=== PATIENT | female | born 1945 | race African-American/Black ===

== ENCOUNTER 2019-08-28 04:01 | Observation (INO) | payer OTHER ==
--- NOTE | 2019-08-28 04:14 | PDOC ---
History of Present Illness - General Chief Complaint: Chest Pain Stated Complaint: CHEST PAIN Time Seen by Provider: 08/28/19 04:13 - History of Present Illness Initial Comments: 08/28/19 04:13 73 yo F PMH diabetes, HTN, and COPD, p/w R sided chest pain. Patient states that it began around 0300, 03/03. Reports that yesterday she was in court and lost visitation rights with her granddaughter, who she has raised as her own. She is extremely tearful about this and states "I need to see a psychiatrist because I just don't understand". Reports that her chest pain has completely resolved after receiving nitroglycerin and aspirin. Denies SOB, N/V, diaphoresis. Further denies fevers/chills, recent travel, [place]. Past History - Past Medical History Allergies/Adverse Reactions: Allergies Allergy/AdvReac Type Severity Reaction Status Date / Time No Known Allergies Allergy Verified 04/09/13 11:36 Home Medications: Ambulatory Orders Unobtainable Home Med List 0 dose .ROUTE UTDICT 04/09/13 Ibuprofen [Motrin] 800 mg PO TID #20 tablet 02/16/15 Methocarbamol [Robaxin -] 500 mg PO TID #21 tablet 02/16/15 COPD: Yes Diabetes: Yes HTN: Yes - Surgical History Cholecystectomy: Yes - Immunization History Td Vaccination: Yes TDAP Vaccination: No Immunization Up to Date: Yes - Psycho Social/Smoking Cessation Hx Smoking Status: No Smoking History: Never smoked Years of Tobacco Use: 0 Number of Cigarettes Smoked Daily: 0 If you are a former smoker, when did you quit?: 2005 Cigars Per Day: 0 Hx Alcohol Use: No Drug/Substance Use Hx: No Substance Use Type: None Review of Systems - Review of Systems Comments:: 08/28/19 05:05 GENERAL/CONSTITUTIONAL: No fever or chills. No weakness. HEAD, EYES, EARS, NOSE AND THROAT: No change in vision. No ear pain or discharge. No sore throat. CARDIOVASCULAR: R sided chest pain. No shortness of breath. RESPIRATORY: No cough, wheezing, or hemoptysis. GASTROINTESTINAL: No nausea, vomiting, diarrhea or constipation. GENITOURINARY: No dysuria, frequency, or change in urination. MUSCULOSKELETAL: No joint or muscle swelling or pain. No neck or back pain. SKIN: No rash NEUROLOGIC: No headache, vertigo, loss of consciousness, or change in strength/ sensation. ENDOCRINE: No increased thirst. No abnormal weight change. HEMATOLOGIC/LYMPHATIC: No anemia, easy bleeding, or history of blood clots. ALLERGIC/IMMUNOLOGIC: No hives or skin allergy *Physical Exam - Physical Exam 08/28/19 05:06 Gen: well-developed, well-nourished, NAD Neuro: AAOX4, CN II-XII intact, FTN intact, EOMI, PERRLA, 5/5 strength, SILT HEENT: atraumatic, normocephalic, dry mucous membranes Neck: trachea midline, supple CV: regular rate, regular rhythm, no murmurs, rubs, or gallops Pulm: CTA b/l, no wheezing Abd: soft, non-distended, non-tender MSK: full ROM, intact pulses Extr: no edema, no deformities Skin: warm, dry Heart Score/ECG Review - History History: Slightly suspicious - Electrocardiogram EKG: Normal - Age Age: >/= 65 - Risk Factors Risk Factors Heart Score: Yes Hx Hypertension, Yes Hx Diabetes, Yes Hx Obesity Based on the list above the patient has:: >/=3 risk factors or Hx atherosclerotic disease - Troponin Troponin: </= normal limit - Score Heart Score - Total: 4 ED Treatment Course - LABORATORY CBC & Chemistry Diagram: 08/28/19 04:45 08/28/19 04:45 Medical Decision Making - Medical Decision Making 08/28/19 05:02 Patient with chest pain, recent stress in her life. - CBC, CMP - EKG, trop - CXR - ctm EKG normal sinus at 60 bpm. 08/28/19 05:57 Labs unremarkable, first trop negative. Will f/u CXR, get admitted for tele obs. 08/28/19 06:49 CXR without acute pathology. Patient admitted to tele obs. Discharge - Discharge Information Problems reviewed: Yes Clinical Impression/Diagnosis: Chest pain - Follow up/Referral - Patient Discharge Instructions - Post Discharge Activity
[2019-08-28 04:15] VITALS: BMI 25.8
[2019-08-28] MEDS ORDERED: ASPIRIN 81 MG CHEWABLE TABLETS ONE (04:21)
--- NOTE | 2019-08-28 04:24 | PDOC ---
Attending Attestation - Resident Resident Name: Evelyn Schroeder - ED Attending Attestation I have performed the following: I have examined & evaluated the patient, The case was reviewed & discussed with the resident, I agree w/resident's findings & plan - HPI HPI: 08/28/19 06:16 see resident hpi - Physicial Exam PE: 08/28/19 06:16 agree with resident exam - Medical Decision Making 08/28/19 06:16 73-year-old female with chest pain with history of hypertension diabetes and hypercholesterolemia Plan for admission for telemetry opts to medical service
[2019-08-28 05:31] LABS: BASO % 1.1 % (0-2.0); EOS % 2.7 % (0-4.5); HEMATOCRIT 33.1 % (32.4-45.2); LYMPH % 31.5 % (8-40); MCHC 33.3 g/dl (32.0-36.0); MEAN CELL VOLUME 93.3 fl (80-96); MEAN PLT VOLUME 8.1 fl (7.5-11.1); MONO % 7.9 % (3.8-10.2); NEUT % 56.8 % (42.8-82.8); PLATELET COUNT 240 K/MM3 (134-434); RBC 3.55 M/mm3 (3.60-5.2); RDW 14.1 % (11.6-15.6); WHITE BLOOD COUNT 5.4 K/mm3 (4.0-10.0)
[2019-08-28 05:39] LABS: ALBUMIN 2.9 g/dl (3.4-5.0); BILIRUBIN,TOTAL 0.2 mg/dL (0.2-1); BLOOD UREA NITROGEN 18.6 mg/dL (7-18); CALCIUM 8.9 mg/dL (8.5-10.1); CREATININE 0.9 mg/dL (0.55-1.3); POTASSIUM 3.5 mmol/L (3.5-5.1)
--- NOTE | 2019-08-28 07:28 | HP ---
CHIEF COMPLAINT: Chest Pain and SOB PCP: Dr Augusto Anton HISTORY OF PRESENT ILLNESS: Pt is a 73 y/o F with a significant past medical history of NIDDM, HTN, HLD, and COPD who presented to [facility] due to chest pain and shortness of breath. Chest pain and SOB commenced around 3 am this morning and woke her from sleep. Chest pain is described as a constant, "pressure-like" and nonradiating. Pt also endorsing shortness of breath which commenced at the same time of the chest pain. Furthermore, pt states she also developed a 'band-like" headache; pt stressed she never has headaches and this is new for her. Denies loss of consciousness, vomiting, diaphoresis or blurry vision. Of note, pt was in court yesterday and lost custody of her granddaughter and this had made her very upset and under a lot of stress. PMH-as above SocialH- Denies T/A/D FamHx- Father "liver problems". Mother [place] SurgHx- Cholecystectomy NKDA ER course was notable for: (1) 1st Trop Neg (2) EKG nl sinus rhythm, nl intervals (3) HOME MEDICATIONS: Home Medications Medication Instructions Recorded Unobtainable Home Med List 0 dose .ROUTE UTDICT 04/09/13 Ibuprofen [Motrin] 800 mg PO TID #20 tablet 02/16/15 Methocarbamol [Robaxin -] 500 mg PO TID #21 tablet 02/16/15 REVIEW OF SYSTEMS CONSTITUTIONAL: Absent: fever, chills, diaphoresis, generalized weakness, malaise, loss of appetite, weight change HEENT: PRESENT: Headache CARDIOVASCULAR: PRESENT: chest pain RESPIRATORY: Absent: cough, shortness of breath, dyspnea with exertion, orthopnea, wheezing, stridor, hemoptysis GASTROINTESTINAL: Absent: abdominal pain, abdominal distension, nausea, vomiting, diarrhea, constipation, melena, hematochezia GENITOURINARY: Absent: dysuria, frequency, urgency, hesitancy, hematuria, flank pain, genital pain MUSCULOSKELETAL: Absent: myalgia, arthralgia, joint swelling, back pain, neck pain SKIN: Absent: rash, itching, pallor HEMATOLOGIC/IMMUNOLOGIC: Absent: easy bleeding, easy bruising, lymphadenopathy, frequent infections ENDOCRINE: Absent: unexplained weight gain, unexplained weight loss, heat intolerance, cold intolerance NEUROLOGIC: Absent: headache, focal weakness or paresthesias, dizziness, unsteady gait, seizure, mental status changes, bladder or bowel incontinence PSYCHIATRIC: Absent: anxiety, depression, suicidal or homicidal ideation, hallucinations. PHYSICAL EXAMINATION Vital Signs - 24 hr 08/28/19 04:12 Temperature 97.9 F Pulse Rate 71 Respiratory 18 Rate Blood Pressure 163/79 O2 Sat by Pulse 99 Oximetry (%) GENERAL: NAD, AAO3 HEAD: Normal with no signs of trauma. EYES: EOMI Sclera Clear EARS, NOSE, THROAT: MMM NECK: No JVD Supple LUNGS: CTA b/l HEART: RRR S1S2 ABDOMEN: Soft, NDNT LOWER EXTREMITIES: No peripheral edema. NEUROLOGICAL: Cranial nerves II-XII intact. Normal speech. PSYCHIATRIC: Cooperative. Good eye contact. Appropriate mood and affect. SKIN: Warm, dry, normal turgor, no rashes or lesions noted, normal capillary refill. Laboratory Results - last 24 hr 08/28/19 08/28/19 08/28/19 04:45 04:45 04:45 WBC 5.4 RBC 3.55 L Hgb 11.0 Hct 33.1 MCV 93.3 MCH 31.0 MCHC 33.3 RDW 14.1 Plt Count 240 MPV 8.1 Absolute Neuts (auto) 3.1 Neutrophils % 56.8 Lymphocytes % 31.5 Monocytes % 7.9 Eosinophils % 2.7 Basophils % 1.1 Nucleated RBC % 0 Sodium 141 Potassium 3.5 Chloride 105 Carbon Dioxide 29 Anion Gap 7 L BUN 18.6 H Creatinine 0.9 Est GFR (CKD-EPI)AfAm 74.56 Est GFR (CKD-EPI)NonAf 64.33 Random Glucose 185 H Calcium 8.9 Total Bilirubin 0.2 AST 12 L ALT 16 Alkaline Phosphatase 64 Creatine Kinase 88 Troponin I 0.02 Total Protein 6.0 L Albumin 2.9 L ASSESSMENT/PLAN: Pt is a 73 y/o F with a significant past medical history of NIDDM, HTN, HLD, and COPD who presented to [facility] due to chest pain and shortness of breath. #Chest Pain. R/o ACS -Trop Neg. Trend -EKG nl sinus rhythm, nl intervals -Echocardiogram -Tele monitoring -Cardiology Consult -Nuclear Stress test - Restart anti-hypertensive medications as BP highest in long time per patient. CP may be 2/2 uncontrolled TN -Check A1C, lipid panel #NIDDM -ISS. Hold Janumet #HTN Valsartan-HCTZ nonformularly. Will place on Valsartan 160 and HCTZ 25 daily #HLD -Resume Statin #COPD Does not appear to be on any medication. #FEN No standing Fluids Monitor Electrolytes Sodium Controlled/Diabetic Diet #DVT ppx: HEP SQ TID #Dispo -Tele Visit type - Emergency Visit Emergency Visit: Yes ED Registration Date: 08/28/19 Care time: The patient presented to the Emergency Department on the above date and was hospitalized for further evaluation of their emergent condition. - New Patient This patient is new to me today: Yes Date on this admission: 08/28/19 - Critical Care Critical Care patient: No ATTENDING PHYSICIAN STATEMENT I saw and evaluated the patient. I reviewed the resident's note and discussed the case with the resident. I agree with the resident's findings and plan as documented. SUBJECTIVE: OBJECTIVE: ASSESSMENT AND PLAN:
[2019-08-28] MEDS ORDERED: VALSARTAN 160 MG TABLET (UD) PO ONE (08:22)
[2019-08-28] MEDS ORDERED: HYDROCHLOROTHIAZIDE 25 MG TABLET (FP) PO ONE (08:24)
[2019-08-28] MEDS ORDERED: HYDROCHLOROTHIAZIDE 25 MG TABLET (FP) ONE (08:47)
[2019-08-28] MEDS ORDERED: VALSARTAN 80 MG TABLET (UD) ONE (08:48)
--- NOTE | 2019-08-28 10:44 | EKG ---
Test Reason : Blood Pressure : / mmHG Vent. Rate : 060 BPM Atrial Rate : 060 BPM P-R Int : 134 ms QRS Dur : 078 ms QT Int : 442 ms P-R-T Axes : 061 008 044 degrees QTc Int : 442 ms NORMAL SINUS RHYTHM NORMAL ECG WHEN COMPARED WITH ECG OF 30-JUL-2008 01:06, NO SIGNIFICANT CHANGE WAS FOUND Confirmed by HAIM ANDERSON MD ([id number]) on 08/28/2019 10:44:21 AM Referred By: Confirmed By:HAIM ANDERSON MD
--- NOTE | 2019-08-28 11:09 | ECHO ---
Name: SELENE MAHONEY, ARIANE Exam:Adult Echocardiogram Study Date: 08/28/2019 08:09 AM Age: 73 yrs Height: 66 in Weight: 160 lb BSA: 1.8 m2 MMode/2D Measurements & Calculations IVSd: 0.96 cm Ao root diam: 2.2 cm LVIDd: 4.4 cm LA dimension: 4.0 cm LVIDs: 2.8 cm LVPWd: 0.90 cm LVPWs: 1.3 cm EDV(Teich): 86.9 ml ESV(Teich): 29.7 ml LVOT diam: 2.2 cm LAV (MOD-bp): 74.0 ml Doppler Measurements & Calculations MV E max nate: 89.3 cm/sec Ao V2 max: 167.7 cm/sec MV A max nate: 100.7 cm/sec Ao max P.3 mmHg MV E/A: 0.89 MV dec time: 0.25 sec JAIME(V,D): 2.1 cm2 LV V1 max P.7 mmHg PA V2 max: 103.8 cm/sec LV V1 max: 96.7 cm/sec PA max P.3 mmHg Med Peak E' Nate: 4.2 cm/sec Med E/e': 21.4 Lat Peak E' Nate: 5.8 cm/sec Lat E/e': 15.3 Left Ventricle The left ventricular size, thickness and function are normal. The left ventricular ejection fraction is normal. Ejection Fraction = 60-65%. The left ventricular wall motion is normal. Right Ventricle The right ventricle is normal in size and function. Atria Normal left and right atrial size and function. The interatrial septum is intact with no evidence for an atrial septal defect. Mitral Valve There is no mitral regurgitation noted. Tricuspid Valve There is trace tricuspid regurgitation. There was insufficient TR detected to calculate RV systolic p ressure. Aortic Valve There is mild aortic valve thickening. No hemodynamically significant valvular aortic stenosis. No ao rtic regurgitation is present. Pulmonic Valve There is no pulmonic valvular regurgitation. Great Vessels The aortic root is normal size. Pericardium/Pleura There is no pericardial effusion. Interpretation Summary The left ventricular size, thickness and function are normal The right ventricle is normal in size and function. There is trace tricuspid regurgitation. MD Sameer Rojas 08/28/2019 11:09 AM
--- NOTE | 2019-08-28 11:43 | PN ---
Teaching Attending Note Name of Resident: Vazquez Ramesh ATTENDING PHYSICIAN STATEMENT I saw and evaluated the patient. I reviewed the resident's note and discussed the case with the resident. I agree with the resident's findings and plan as documented with exceptions below. SUBJECTIVE: 73 yof with PMhx of HTN, HLD, NIDDM, COPD admitted with sudden onset of chest pain, dyspnea, associated with headache, around 3 AM today, prompting her to come to the ED. reports was at court yesterday, when found out had lost visitation rights to her grandchild, was under a lot of stress. Reports home BP 180s-190s on admission. Reports her prior home BP have been controlled, but not compliant with home Blood glucose measurements. No similar prior history or exertional symptoms. No current symptoms. OBJECTIVE: Vital Signs Period Temp Pulse Resp BP Sys/Carl[place] Pulse Ox Last 24 Hr 97.6 F-97.9 F 56-71 16-18 160-163/77-79 95-99 Intake & Output 08/25/19 08/26/19 08/27/19 08/28/19 23:59 23:59 23:59 23:59 Weight 160 lb GENERAL: Awake, alert, and fully oriented, in no acute distress. HEAD: Normal with no signs of trauma. EYES: Pupils equal, round and reactive to light, extraocular movements intact, sclera anicteric, conjunctiva clear. No lid lag. EARS, NOSE, THROAT: Ears normal, nares patent, oropharynx clear without exudates. Moist mucous membranes. NECK: Normal range of motion, supple, no JVD LUNGS: Breath sounds equal, clear to auscultation bilaterally. No wheezes, and no crackles. No accessory muscle use. HEART: Regular rate and rhythm, normal S1 and S2, no murmurs rubs or gallops appreciated ABDOMEN: Soft, nontender, obese, not distended, normoactive bowel sounds, no guarding, no rebound, no masses. No hepatomegaly or splenomegaly appreciated. MUSCULOSKELETAL: Normal range of motion at all joints. No bony deformities or tenderness. No CVA tenderness. UPPER EXTREMITIES: 2+ pulses, warm, well-perfused. No cyanosis. No clubbing. No peripheral edema. LOWER EXTREMITIES: 2+ pulses, warm, well-perfused. No calf tenderness. No peripheral edema. NEUROLOGICAL: AAOx3, facial symmetry, tongue midline, speech normal, Cranial nerves II-XII intact. Gait not observed PSYCHIATRIC: Cooperative. Good eye contact. Appropriate mood and affect. SKIN: Warm, dry, normal turgor, no rashes or lesions noted, normal capillary refill. Home Medications Medication Instructions Recorded Metoprolol Succinate 50 mg PO DAILY 08/28/19 Pioglitazone HCl 30 mg PO DAILY 08/28/19 Sitagliptin Phos/Metformin HCl 1 tab PO BID 08/28/19 [Janumet 50-1,000 mg Tablet] Valsartan/Hydrochlorothiazide 1 each PO DAILY 08/28/19 [Valsartan-Hctz 160-25 mg Tab] Active Medications Heparin Sodium (Porcine) (Heparin -) 5,000 unit SQ TID [facility] Hydrochlorothiazide (Hctz -) 25 mg PO DAILY [facility] Insulin Aspart (Novolog Vial Sliding Scale -) 1 vial SQ ACHS [facility]; Protocol Metoprolol Succinate (Toprol Xl -) 50 mg PO DAILY [facility] Valsartan (Diovan -) 160 mg PO DAILY [facility] Laboratory Results - last 24 hr 08/28/19 08/28/19 08/28/19 04:45 04:45 04:45 WBC 5.4 RBC 3.55 L Hgb 11.0 Hct 33.1 MCV 93.3 MCH 31.0 MCHC 33.3 RDW 14.1 Plt Count 240 MPV 8.1 Absolute Neuts (auto) 3.1 Neutrophils % 56.8 Lymphocytes % 31.5 Monocytes % 7.9 Eosinophils % 2.7 Basophils % 1.1 Nucleated RBC % 0 Sodium 141 Potassium 3.5 Chloride 105 Carbon Dioxide 29 Anion Gap 7 L BUN 18.6 H Creatinine 0.9 Est GFR (CKD-EPI)AfAm 74.56 Est GFR (CKD-EPI)NonAf 64.33 POC Glucometer Random Glucose 185 H Calcium 8.9 Total Bilirubin 0.2 AST 12 L ALT 16 Alkaline Phosphatase 64 Creatine Kinase 88 Troponin I 0.02 Total Protein 6.0 L Albumin 2.9 L 08/28/19 08/28/19 07:43 10:20 WBC RBC Hgb Hct MCV MCH MCHC RDW Plt Count MPV Absolute Neuts (auto) Neutrophils % Lymphocytes % Monocytes % Eosinophils % Basophils % Nucleated RBC % Sodium Potassium Chloride Carbon Dioxide Anion Gap BUN Creatinine Est GFR (CKD-EPI)AfAm Est GFR (CKD-EPI)NonAf POC Glucometer 142 Random Glucose Calcium Total Bilirubin AST ALT Alkaline Phosphatase Creatine Kinase Troponin I < 0.02 Total Protein Albumin EKG, NSR, no acute ST-T changes noted CXR images and results reviewed, no acute process ASSESSMENT AND PLAN: 73 yof with PMHx of HTN, HLD, NIDDM, COPD admitted with chest pain, headache, elevated BP in the setting of stressful news. -Chest pain, from uncontrolled BP in the setting of recent stress, r/o ACS -NIDDM -HTN -HLD -COPD Plan: Telemetry, r/o ACS. ASA, check lipid panel. 2D echo noted. Cardiology input. BP control, resume home meds and will titrate based on blood pressure readings. Given risk factors, will benefit from stress test, inpatient vs outpatient based on clinical course and BP control. Check A1c, hold oral DM agents for now. ISS DVTPPX lovenox Dispo admit to obs tele. Dc in 24 hours if w/u unrevealing, symptoms resolved and BP improved Discussed with patient and nursing, all questions answered total admit time 55 min.
[2019-08-28] MEDS: INSULIN SLIDING SCALE (NOVOLOG) 1 VIAL SQ SCH ×3 (12:51→22:16)
--- NOTE | 2019-08-28 13:50 | CON.CARD ---
Cardiology Consult (text) - Consultation Consultation Note: cc: cp hpi: 73 f hx htn, dm, copd here with cp. Has been stressed lately. Last night went to bed, felt fine. Awoke 3 am with central chest pressure. Called ems and came and gave asa and nitro and felt better. No sob palps dizzy loc pnd orthopnea, le edema. No further cp. No frequent cp episodes. In er bp was elevated, sbp 190s. pmh: per hpi psh: cholecystectomy social: no tob fam: no premature cad, scd ros: per hpi; all others nl meds: Ambulatory Orders Metoprolol Succinate 50 mg PO DAILY 08/28/19 Pioglitazone HCl 30 mg PO DAILY 08/28/19 Sitagliptin Phos/Metformin HCl [Janumet 50-1,000 mg Tablet] 1 tab PO BID Valsartan/Hydrochlorothiazide [Valsartan-Hctz 160-25 mg Tab] 1 each PO DAILY 02/09 pe: Vital Signs Period Temp Pulse Resp BP Sys/[place] Pulse Ox Last 24 Hr 97.6 F-97.9 F 56-71 16-18 160-163/77-79 95-99 nad no jvd rrr s1s2 no mrg cta bl nl eff aao3 no le e/c/c abd nt nd pos bs no jaundice diaphoresis pos dp pt no carotid bruits Laboratory Last Values WBC 5.4 K/mm3 (4.0-10.0) 08/28/19 04:45 RBC 3.55 M/mm3 (3.60-5.2) L 08/28/19 04:45 Hgb 11.0 GM/dL (10.7-15.3) 08/28/19 04:45 Hct 33.1 % (32.4-45.2) 08/28/19 04:45 MCV 93.3 fl (80-96) 08/28/19 04:45 MCH 31.0 pg (25.7-33.7) 08/28/19 04:45 MCHC 33.3 g/dl (32.0-36.0) 08/28/19 04:45 RDW 14.1 % (11.6-15.6) 08/28/19 04:45 Plt Count 240 K/MM3 (134-434) 08/28/19 04:45 MPV 8.1 fl (7.5-11.1) 08/28/19 04:45 Absolute Neuts (auto) 3.1 K/mm3 (1.5-8.0) 08/28/19 04:45 Neutrophils % 56.8 % (42.8-82.8) 08/28/19 04:45 Lymphocytes % 31.5 % (8-40) 08/28/19 04:45 Monocytes % 7.9 % (3.8-10.2) 08/28/19 04:45 Eosinophils % 2.7 % (0-4.5) 08/28/19 04:45 Basophils % 1.1 % (0-2.0) 08/28/19 04:45 Nucleated RBC % 0 % (0-0) 08/28/19 04:45 Sodium 141 mmol/L (136-145) 08/28/19 04:45 Potassium 3.5 mmol/L (3.5-5.1) 08/28/19 04:45 Chloride 105 mmol/L (98-107) 08/28/19 04:45 Carbon Dioxide 29 mmol/L (21-32) 08/28/19 04:45 Anion Gap 7 MMOL/L (8-16) L 08/28/19 04:45 BUN 18.6 mg/dL (7-18) H 08/28/19 04:45 Creatinine 0.9 mg/dL (0.55-1.3) 08/28/19 04:45 Est GFR (CKD-EPI)AfAm 74.56 08/28/19 04:45 Est GFR (CKD-EPI)NonAf 64.33 08/28/19 04:45 POC Glucometer 205 UNITS (80-120) 08/28/19 12:43 Random Glucose 185 mg/dL (74-106) H 08/28/19 04:45 Calcium 8.9 mg/dL (8.5-10.1) 08/28/19 04:45 Total Bilirubin 0.2 mg/dL (0.2-1) 08/28/19 04:45 AST 12 U/L (15-37) L 08/28/19 04:45 ALT 16 U/L (13-61) 08/28/19 04:45 Alkaline Phosphatase 64 U/L (45-117) 08/28/19 04:45 Creatine Kinase 88 U/L (26-192) 08/28/19 04:45 Troponin I < 0.02 ng/ml (0.00-0.05) 08/28/19 10:20 Total Protein 6.0 g/dl (6.4-8.2) L 08/28/19 04:45 Albumin 2.9 g/dl (3.4-5.0) L 08/28/19 04:45 cxr: clear lungs ecg: sr nl intervals no ischemic changes echo 08/2019: nl lv/rv no sig valve path a/p: 73 f hx htn, dm, copd here with cp. cp: -resolved -trops neg, ecg and echo unremarkable. Does not seem like acs, possibly related to elevated bp. Given her cad risk factors will eval further with nuclear stress test. -continued bp control htn: -cont current meds, if bp remains elevated will need to uptitrate doses dm: -tx plans per primary team
[2019-08-28] MEDS: HEPARIN NA (PORCINE) 5,000 UNITS/ML 1ML VIAL SQ SCH ×2 (15:46→22:16)
[2019-08-28] MEDS ORDERED: LABETALOL HCL 5 MG/1 ML (100MG/20 ML VIAL) IVPUSH ONE (16:44)
[2019-08-28] MEDS ORDERED: LABETALOL HCL 5 MG/1 ML (200MG/40ML VIAL) IVPB ONE (17:21)
[2019-08-28] MEDS ORDERED: HEPARIN NA (PORCINE) 5,000 UNITS/ML 1ML VIAL ONE (22:06)
[2019-08-28 23:45] LABS: CHOLESTEROL 163 mg/dL (50-200); HDL CHOLESTEROL 71 mg/dL (40-60); LDL CHOLESTEROL (ONLY SJRH) 72 mg/dL (5-100); TRIGLYCERIDES 73 mg/dL (0-150)
[2019-08-29 06:29] LABS: BASO % 0.8 % (0-2.0); EOS % 3.2 % (0-4.5); HEMATOCRIT 33.4 % (32.4-45.2); HEMOGLOBIN 11.2 GM/dL (10.7-15.3); LYMPH % 38.4 % (8-40); MCH 31.2 pg (25.7-33.7); MCHC 33.5 g/dl (32.0-36.0); MEAN PLT VOLUME 7.8 fl (7.5-11.1); MONO % 8.6 % (3.8-10.2); PLATELET COUNT 222 K/MM3 (134-434); RDW 13.6 % (11.6-15.6); WHITE BLOOD COUNT 4.3 K/mm3 (4.0-10.0)
[2019-08-29] MEDS: HEPARIN NA (PORCINE) 5,000 UNITS/ML 1ML VIAL SQ SCH ×2 (06:29→14:25)
[2019-08-29 06:51] LABS: INR 1.14 (0.83-1.09); PROTHROMBIN TIME (PATIENT) 13.5 SEC (9.7-13.0)
[2019-08-29 06:54] LABS: ACTIVATED PTT 43.4 SECONDS (25.2-36.5)
[2019-08-29 06:57] LABS: ALBUMIN 2.9 g/dl (3.4-5.0); BILIRUBIN,TOTAL 0.3 mg/dL (0.2-1); BLOOD UREA NITROGEN 11.5 mg/dL (7-18); CALCIUM 8.9 mg/dL (8.5-10.1); CREATININE 0.7 mg/dL (0.55-1.3); PHOSPHOROUS 3.8 mg/dL (2.5-4.9); POTASSIUM 3.3 mmol/L (3.5-5.1)
[2019-08-29] MEDS: INSULIN SLIDING SCALE (NOVOLOG) 1 VIAL SQ SCH ×3 (06:57→16:59)
[2019-08-29] MEDS ORDERED: POTASSIUM CHLORIDE TABS 20 MEQ TABLET.ER (FP) PO ONE ×2 (08:02→11:33)
[2019-08-29] MEDS ORDERED: HYDROCHLOROTHIAZIDE 25 MG TABLET (FP) PO SCH (10:00)
[2019-08-29] MEDS ORDERED: VALSARTAN 160 MG TABLET (UD) PO SCH (10:00)
[2019-08-29] MEDS ORDERED: REGADENOSON 0.4 MG/5 ML PRE-FILLED SYRINGE IVPUSH ONE ×2 (11:15→11:16)
--- NOTE | 2019-08-29 11:16 | PN ---
Progress Note, Physician Chief Complaint: stress test done History of Present Illness: Chest pain/ heaviness at rest, woke her from sleep with SOB + DM, + HTN - Current Medication List Current Medications: Active Medications Heparin Sodium (Porcine) (Heparin -) 5,000 unit SQ TID [facility] Last Admin: 08/29/19 06:29 Dose: 5,000 unit Hydrochlorothiazide (Hctz -) 25 mg PO DAILY [facility] Insulin Aspart (Novolog Vial Sliding Scale -) 1 vial SQ ACHS [facility]; Protocol Last Admin: 08/29/19 06:57 Dose: Not Given Metoprolol Succinate (Toprol Xl -) 50 mg PO DAILY [facility] Regadenoson (Lexiscan) 0.4 mg IVPUSH ONCE ONE Stop: 08/29/19 11:16 Valsartan (Diovan -) 160 mg PO DAILY [facility] - Objective Vital Signs: Vital Signs Temperature 97.7 F 08/29/19 07:20 Pulse Rate 56 L 08/29/19 07:20 Respiratory Rate 20 08/29/19 07:20 Blood Pressure 171/66 H 08/29/19 07:20 O2 Sat by Pulse Oximetry (%) 98 08/29/19 07:20 Constitutional: Yes: No Distress Cardiovascular: Yes: Regular Rate and Rhythm Respiratory: Yes: CTA Bilaterally Gastrointestinal: Yes: Soft Edema: No Neurological: Yes: Alert, Oriented Labs: CBC, BMP 08/29/19 05:30 08/29/19 05:30 INR, PTT INR 1.14 (0.83-1.09) H 08/29/19 05:30 Laboratory Tests 08/28/19 08/28/19 08/29/19 04:45 10:20 05:30 WBC 4.3 Hgb 11.2 Plt Count 222 Sodium Potassium Creatinine Troponin I 0.02 < 0.02 08/29/19 05:30 WBC Hgb Plt Count Sodium 142 Potassium 3.3 L Creatinine 0.7 Troponin I - ....Imaging EKG: Image Reviewed Assessment/Plan cxr: clear lungs ecg: sr nl intervals no ischemic changes echo 08/2019: nl lv/rv no sig valve path a/p: 73 f hx htn, dm, copd here with cp. Stress test shows inferolateral and anterolateral ischemia. Discussed with patient. Options of medical therapy for CAD vs medical therapy + diagnostic LHC to define presence and extent of CAD were offered Risks/benefits/ alternative (outpatient CTA) also reviewed. Patient has decided to have cath, which I agree is the best option and my recommendation given the risk factor profile and chest pain at rest. Plan for tx to [facility] for cath.
[2019-08-29] MEDS ORDERED: ASPIRIN 81 MG CHEWABLE TABLETS PO SCH (13:30)
[2019-08-29 13:53] VITALS: PULSE 58
[2019-08-29] MEDS ORDERED: ASPIRIN 81 MG CHEWABLE TABLETS ONE (14:19)
[2019-08-29 16:31] VITALS: BP 144/74; TEMP 98.4
--- NOTE | 2019-08-29 18:10 | DS ---
Physical Exam: SUBJECTIVE: Patient seen and examined in the morning. No acute events overnight. No complaints of chest pain, shortness of breath, abdominal pain, nausea, vomiting, diarrhea. OBJECTIVE: Vital Signs Period Temp Pulse Resp BP Sys/[place] Pulse Ox Last 24 Hr 97.5 F-98.4 F 56-84 16-20 144-171/54-74 97-100 PHYSICAL EXAM GENERAL: The patient is awake, alert, and fully oriented, in no acute distress. HEAD: Normal with no signs of trauma. EYES: PERRL, extraocular movements intact, sclera anicteric, conjunctiva clear. ENT: Ears normal, nares patent, oropharynx clear without exudates, moist mucous membranes. NECK: Trachea midline, full range of motion, supple. LUNGS: Breath sounds equal, clear to auscultation bilaterally, no wheezes, no crackles, no accessory muscle use. HEART: Regular rate and rhythm, S1, S2 without murmur, rub or gallop. Nontender to palpation. ABDOMEN: Soft, nontender, nondistended, normoactive bowel sounds, no guarding, no rebound, no hepatosplenomegaly, no masses. EXTREMITIES: 2+ pulses, warm, well-perfused, no edema. NEUROLOGICAL: Cranial nerves II through XII grossly intact. Normal speech, gait not observed. PSYCH: Normal mood, normal affect. SKIN: Warm, dry, normal turgor, no rashes or lesions noted. LABS Laboratory Results - last 24 hr 08/28/19 08/28/19 08/28/19 04:45 10:20 22:11 WBC RBC Hgb Hct MCV MCH MCHC RDW Plt Count MPV Absolute Neuts (auto) Neutrophils % Lymphocytes % Monocytes % Eosinophils % Basophils % Nucleated RBC % PT with INR INR PTT (Actin FS) Sodium Potassium Chloride Carbon Dioxide Anion Gap BUN Creatinine Est GFR (CKD-EPI)AfAm Est GFR (CKD-EPI)NonAf POC Glucometer 241 Random Glucose Hemoglobin A1c % 7.5 H Calcium Phosphorus Magnesium Total Bilirubin AST ALT Alkaline Phosphatase Troponin I < 0.02 Total Protein Albumin Triglycerides 73 Cholesterol 163 Total LDL Cholesterol 72 HDL Cholesterol 71 H 08/29/19 08/29/19 08/29/19 05:30 05:30 05:30 WBC 4.3 RBC 3.60 Hgb 11.2 Hct 33.4 MCV 93.0 MCH 31.2 MCHC 33.5 RDW 13.6 Plt Count 222 MPV 7.8 Absolute Neuts (auto) 2.1 Neutrophils % 49.0 Lymphocytes % 38.4 D Monocytes % 8.6 Eosinophils % 3.2 Basophils % 0.8 Nucleated RBC % 0 PT with INR 13.50 H INR 1.14 H PTT (Actin FS) 43.4 H Sodium 142 Potassium 3.3 L Chloride 106 Carbon Dioxide 30 Anion Gap 6 L BUN 11.5 Creatinine 0.7 Est GFR (CKD-EPI)AfAm 101.03 Est GFR (CKD-EPI)NonAf 87.17 POC Glucometer Random Glucose 149 H Hemoglobin A1c % Calcium 8.9 Phosphorus 3.8 Magnesium 2.0 Total Bilirubin 0.3 AST 11 L ALT 16 Alkaline Phosphatase 63 Troponin I Total Protein 6.0 L Albumin 2.9 L Triglycerides Cholesterol Total LDL Cholesterol HDL Cholesterol 08/29/19 08/29/19 08/29/19 06:54 13:21 16:55 WBC RBC Hgb Hct MCV MCH MCHC RDW Plt Count MPV Absolute Neuts (auto) Neutrophils % Lymphocytes % Monocytes % Eosinophils % Basophils % Nucleated RBC % PT with INR INR PTT (Actin FS) Sodium Potassium Chloride Carbon Dioxide Anion Gap BUN Creatinine Est GFR (CKD-EPI)AfAm Est GFR (CKD-EPI)NonAf POC Glucometer 145 144 184 Random Glucose Hemoglobin A1c % Calcium Phosphorus Magnesium Total Bilirubin AST ALT Alkaline Phosphatase Troponin I Total Protein Albumin Triglycerides Cholesterol Total LDL Cholesterol HDL Cholesterol HOSPITAL COURSE: Date of Admission:08/28/19 Date of Discharge: 08/29/19 73F PMH HTN, HLD, NIDDM, COPD admitted for chest pain, headache, elevated BP. Echo showed the left ventricular size, thickness and function are normal. Right ventricle is normal in size and function. There is trace tricuspid regurgitation. Stress test hsows inferolateral and anterolateral ischemia. Patient was offered medical therapy or medical therapy with a diagnostic left heart catherization, and chose to have catherization. Patient was accepted to [place] for catherization under the care of Dr. Lozoya. MEDICATIONS: ASA 81 mg PO Metoprolol 50 mg PO Valsartan 160 mg PO Heparin 5000 unit SQ TID Imaging done this admission: Chest X-ray: Single portable view of the chest reveals clear lungs, normal mediastinum and sharp angles. The bones and soft tissues are intact. An acute process is not seen. If symptoms persist, further imaging may be of help. Echo: The left ventricular size, thickness and function are normal The right ventricle is normal in size and function. There is trace tricuspid regurgitation. Stress Test: EXERCISE RESULTS: No ischemic ST changes and no arrhythmias during Regadenoson infusion. NUCLEAR RESULTS: Mild inferolateral ischemia. Mild to moderate anterolateral ischemia. Breast attenuation artifact. No evidence of transient ischemic dilatation. LVEF : 70% Minutes to complete discharge: 30 Discharge Summary Problems reviewed: Yes Reason For Visit: CHEST PAIN Current Active Problems Chest pain (Acute) Condition: Stable - Instructions Diet, Activity, Other Instructions: 73F PMH HTN, HLD, NIDDM, COPD admitted for chest pain, headache, elevated BP. Echo showed the left ventricular size, thickness and function are normal. Right ventricle is normal in size and function. There is trace tricuspid regurgitation. Stress test hsows inferolateral and anterolateral ischemia. Patient was offered medical therapy or medical therapy with a diagnostic left heart catherization, and chose to have catherization. Patient was accepted to [place] for catherization under the care of Dr. Lozoya. MEDICATIONS: ASA 81 mg PO Metoprolol 50 mg PO Valsartan 160 mg PO Heparin 5000 unit SQ TID Referrals: Garret Lozoya MD [Other] - 08/29/19 Disposition: TRANSFER ACUTE CARE/OTHER HOSP - Home Medications Comprehensive Discharge Medication List: Ambulatory Orders Metoprolol Succinate 50 mg PO DAILY 08/28/19 Pioglitazone HCl 30 mg PO DAILY 08/28/19 Sitagliptin Phos/Metformin HCl [Janumet 50-1,000 mg Tablet] 1 tab PO BID Valsartan/Hydrochlorothiazide [Valsartan-Hctz 160-25 mg Tab] 1 each PO DAILY 02/09 This patient is new to me today: Yes Date on this admission: 08/29/19 Emergency Visit: Yes ED Registration Date: 08/28/19 Care time: The patient presented to the Emergency Department on the above date and was hospitalized for further evaluation of their emergent condition. Critical Care patient: No - Discharge Referral Referred to [facility] No ATTENDING PHYSICIAN STATEMENT I saw and evaluated the patient. I reviewed the resident's note and discussed the case with the resident. I agree with the resident's findings and plan as documented. SUBJECTIVE: OBJECTIVE: ASSESSMENT AND PLAN:
--- NOTE | 2019-08-29 18:19 | PN ---
Teaching Attending Note Name of Resident: Giovani England ATTENDING PHYSICIAN STATEMENT I saw and evaluated the patient. I reviewed the resident's note and discussed the case with the resident. I agree with the resident's findings and plan as documented. SUBJECTIVE: Chest heaviness at rest. No cough/sputum/hemoptysis OBJECTIVE: Afebrile Hemodynamically Stable. Last Vital Signs Temp Pulse Resp BP Pulse Ox 98.4 F 58 L 16 144/74 97 08/29/19 15:50 08/29/19 15:50 08/29/19 15:50 08/29/19 15:50 08/29/19 15:50 HEENT - Atraumatic, Normocephalic. Heart - S1, S2, RRR Lungs - Clear to auscultation Abdomen - Soft, non-tender. Bowel Sounds normal Extremities - no calf tenderness Laboratory Results - last 24 hr 08/28/19 08/28/19 08/28/19 04:45 10:20 22:11 WBC RBC Hgb Hct MCV MCH MCHC RDW Plt Count MPV Absolute Neuts (auto) Neutrophils % Lymphocytes % Monocytes % Eosinophils % Basophils % Nucleated RBC % PT with INR INR PTT (Actin FS) Sodium Potassium Chloride Carbon Dioxide Anion Gap BUN Creatinine Est GFR (CKD-EPI)AfAm Est GFR (CKD-EPI)NonAf POC Glucometer 241 Random Glucose Hemoglobin A1c % 7.5 H Calcium Phosphorus Magnesium Total Bilirubin AST ALT Alkaline Phosphatase Troponin I < 0.02 Total Protein Albumin Triglycerides 73 Cholesterol 163 Total LDL Cholesterol 72 HDL Cholesterol 71 H 08/29/19 08/29/19 08/29/19 05:30 05:30 05:30 WBC 4.3 RBC 3.60 Hgb 11.2 Hct 33.4 MCV 93.0 MCH 31.2 MCHC 33.5 RDW 13.6 Plt Count 222 MPV 7.8 Absolute Neuts (auto) 2.1 Neutrophils % 49.0 Lymphocytes % 38.4 D Monocytes % 8.6 Eosinophils % 3.2 Basophils % 0.8 Nucleated RBC % 0 PT with INR 13.50 H INR 1.14 H PTT (Actin FS) 43.4 H Sodium 142 Potassium 3.3 L Chloride 106 Carbon Dioxide 30 Anion Gap 6 L BUN 11.5 Creatinine 0.7 Est GFR (CKD-EPI)AfAm 101.03 Est GFR (CKD-EPI)NonAf 87.17 POC Glucometer Random Glucose 149 H Hemoglobin A1c % Calcium 8.9 Phosphorus 3.8 Magnesium 2.0 Total Bilirubin 0.3 AST 11 L ALT 16 Alkaline Phosphatase 63 Troponin I Total Protein 6.0 L Albumin 2.9 L Triglycerides Cholesterol Total LDL Cholesterol HDL Cholesterol 08/29/19 08/29/19 08/29/19 06:54 13:21 16:55 WBC RBC Hgb Hct MCV MCH MCHC RDW Plt Count MPV Absolute Neuts (auto) Neutrophils % Lymphocytes % Monocytes % Eosinophils % Basophils % Nucleated RBC % PT with INR INR PTT (Actin FS) Sodium Potassium Chloride Carbon Dioxide Anion Gap BUN Creatinine Est GFR (CKD-EPI)AfAm Est GFR (CKD-EPI)NonAf POC Glucometer 145 144 184 Random Glucose Hemoglobin A1c % Calcium Phosphorus Magnesium Total Bilirubin AST ALT Alkaline Phosphatase Troponin I Total Protein Albumin Triglycerides Cholesterol Total LDL Cholesterol HDL Cholesterol Current Medications Generic Name Dose Route Start Last Admin Trade Name Freq PRN Reason Stop Dose Admin Aspirin 81 mg 08/29/19 13:30 08/29/19 14:25 Asa - PO 81 mg DAILY SHERRI Administration Heparin Sodium (Porcine) 5,000 unit 08/28/19 14:00 08/29/19 14:25 Heparin - SQ 5,000 unit TID SHERRI Administration Hydrochlorothiazide 25 mg 08/29/19 10:00 Hctz - PO DAILY [facility] Insulin Aspart 1 vial 08/28/19 11:00 08/29/19 16:59 Novolog Vial Sliding Scale - SQ Not Given ACHS [facility] Protocol Metoprolol Succinate 50 mg 08/29/19 10:00 08/29/19 13:10 Toprol Xl - PO Not Given DAILY [facility] Valsartan 160 mg 08/29/19 10:00 08/29/19 12:54 Diovan - PO 160 mg DAILY SHERRI Administration Home Medications Medication Instructions Recorded Metoprolol Succinate 50 mg PO DAILY 08/28/19 Pioglitazone HCl 30 mg PO DAILY 08/28/19 Sitagliptin Phos/Metformin HCl 1 tab PO BID 08/28/19 [Janumet 50-1,000 mg Tablet] Valsartan/Hydrochlorothiazide 1 each PO DAILY 08/28/19 [Valsartan-Hctz 160-25 mg Tab] ASSESSMENT AND PLAN: 73 year old female with HTN, DM 2, COPD presents with CP. 1. Acute Cardiac CP/Unstable Angina tropI neg, ECG - no acute changes. CXR - no acute findings. Positive MIBI - Stress test shows inferolateral and anterolateral ischemia. Evaluated by Cardio and recommended for transfer to [facility] for Cardiac Cath - accepting physician Dr. Garret Lozoya Continue ASA, BB, ARB. Consideration of Statin by Cardio. 2. HTN- on HCTZ, Valsartan, Metoprolol 3. DM 2 - Sitagliptin/metformin/Pioglitazone held. Maintain on Novolog sliding scale. 4. Hypokalemia - repleted. DVT Px - Heparin SQ
== END 2019-08-29 18:00 | disposition short-term general hospital (02) ==
LOC: JER 04:01 → JERBED 05:07
PROVIDERS: ADMIT Hospitalist
PROC: 3E023GC Introduction of Other Therapeutic Substance into Muscle, Percutaneous Approach (ICD-10-PCS; principal; 2019-08-28)
PROC: 3E033GC Introduction of Other Therapeutic Substance into Peripheral Vein, Percutaneous Approach (ICD-10-PCS; 2019-08-28)
PROC: 3E033GC Introduction of Other Therapeutic Substance into Peripheral Vein, Percutaneous Approach (ICD-10-PCS; 2019-08-28)
DX: R07.9 Chest pain, unspecified (principal); I20.0 Unstable angina; I10 Essential (primary) hypertension; E11.9 Type 2 diabetes mellitus without complications; Z79.84 Long term (current) use of oral hypoglycemic drugs; E78.00 Pure hypercholesterolemia, unspecified; E87.6 Hypokalemia; Z90.49 Acquired absence of other specified parts of digestive tract
CPT/HCPCS: 36415; 71045-TC-FY; 78452-TC; 80053; 80061; 82550; 82962; 83036; 83721; 83735; 84100; 84484; 85025; 85610; 85730; 93005; 93010; 93017; 93306-TC; 96372; 96374; 96375; 99285-25; A9502; G0378; J1644; J2785

== ENCOUNTER 2022-07-21 11:19 | Inpatient (IN) | payer OTHER ==
[2022-07-21] MEDS ORDERED: amLODIPine BESYLATE 10 MG TABLET (FP) PO ONE ×2 (12:42→15:40)
[2022-07-21] MEDS ORDERED: INSULIN REGULAR HUMAN 100 UNITS/ML *VIAL IVPUSH ONE (12:57)
[2022-07-21 13:05] LABS: EOS % 1.4 % (0-4.5); HEMATOCRIT 35.6 % (32.4-45.2); HEMOGLOBIN 12.2 GM/dL (10.7-15.3); LYMPH % 20.8 % (8-40); MCH 31.8 pg (25.7-33.7); MCHC 34.3 g/dl (32.0-36.0); MEAN CELL VOLUME 92.7 fl (80-96); MEAN PLT VOLUME 8.4 fl (7.5-11.1); NEUT % 69.8 % (42.8-82.8); PLATELET COUNT 225 10^3/uL (134-434); RBC 3.84 M/mm3 (3.60-5.2); RDW 13.3 % (11.6-15.6); WHITE BLOOD COUNT 4.8 K/mm3 (4.0-10.0)
[2022-07-21] MEDS ORDERED: INSULIN REGULAR HUMAN 100 UNITS/ML *VIAL SQ ONE (13:08)
[2022-07-21] MEDS ORDERED: amLODIPine BESYLATE 10 MG TABLET (FP) ONE ×2 (13:09→16:56)
[2022-07-21] MEDS ORDERED: amLODIPine BESYLATE 5 MG TABLET (FP) ONE (13:09)
[2022-07-21] MEDS ORDERED: LOSARTAN POTASSIUM 25 MG TABLET PO ONE (13:27)
[2022-07-21 13:34] LABS: CALCIUM 8.7 mg/dL (8.5-10.1)
[2022-07-21 13:35] LABS: ALBUMIN 3.3 g/dl (3.4-5.0); BLOOD UREA NITROGEN 10.4 mg/dL (7-18); MAGNESIUM 1.7 mg/dL (1.8-2.4)
[2022-07-21 13:38] LABS: CREATININE 0.9 mg/dL (0.55-1.3)
[2022-07-21 13:39] LABS: BILIRUBIN,TOTAL 0.3 mg/dL (0.2-1); TOT PROT 6.5 g/dl (6.4-8.2)
[2022-07-21] MEDS ORDERED: LOSARTAN POTASSIUM 25 MG TABLET ONE (13:47)
[2022-07-21 17:26] LABS: URINE APPEARANCE CLEAR; URINE BILIRUBIN NEGATIVE (NEGATIVE); URINE COLOR YELLOW; URINE GLUCOSE (UA) 3+ (NEGATIVE); URINE KETONE NEGATIVE (NEGATIVE); URINE LEUK ESTERASE NEGATIVE (NEGATIVE); URINE NITRITE NEGATIVE (NEGATIVE); URINE PROTEIN NEGATIVE (NEGATIVE); URINE UROBILINOGEN 0.2 mg/dL (0.2-1.0)
[2022-07-21] MEDS ORDERED: NICARDIPINE 25 MG in DEXTROSE 5%-WATER - 240 ML IVPB SCH (17:45)
[2022-07-21] MEDS ORDERED: MAGNESIUM SULF 50% (8.12 MEQ/2 ML-1 GM VIAL) IVPB ONE (18:22)
[2022-07-21] MEDS ORDERED: MAGNESIUM SULFATE IN WATER 2 GM/50 ML IVPB IVPB ONE (19:52)
[2022-07-22 06:31] LABS: BASO % 0.8 % (0-2.0); EOS % 1.4 % (0-4.5); HEMATOCRIT 34.9 % (32.4-45.2); HEMOGLOBIN 12.2 GM/dL (10.7-15.3); LYMPH % 22.7 % (8-40); MCH 32.2 pg (25.7-33.7); MEAN CELL VOLUME 91.9 fl (80-96); MEAN PLT VOLUME 7.8 fl (7.5-11.1); MONO % 6.4 % (3.8-10.2); NEUT % 68.7 % (42.8-82.8); PLATELET COUNT 215 10^3/uL (134-434); RDW 13.4 % (11.6-15.6); WHITE BLOOD COUNT 5.6 K/mm3 (4.0-10.0)
[2022-07-22 06:46] LABS: BLOOD UREA NITROGEN 8.4 mg/dL (7-18); CALCIUM 8.3 mg/dL (8.5-10.1); MAGNESIUM 1.8 mg/dL (1.8-2.4)
[2022-07-22 06:50] LABS: CREATININE 0.6 mg/dL (0.55-1.3); PHOSPHOROUS 3.4 mg/dL (2.5-4.9)
[2022-07-22 06:51] LABS: BILIRUBIN,TOTAL 0.4 mg/dL (0.2-1); TOT PROT 5.9 g/dl (6.4-8.2)
[2022-07-22] MEDS: INSULIN SLIDING SCALE (NOVOLOG) 1 VIAL SQ SCH ×3 (10:02→16:45)
[2022-07-22] MEDS: ENOXAPARIN NA (PORCINE) 40 MG/0.4 ML DISP.SYRIN SQ SCH (10:03)
[2022-07-22] MEDS ORDERED: LOSARTAN POTASSIUM 25 MG TABLET PO SCH ×2 (10:30→11:21)
[2022-07-22] MEDS ORDERED: metoPROLOL SUCCINATE 25 MG TAB.SR.24H (FP) PO ONE (10:55)
[2022-07-22] MEDS ORDERED: LOSARTAN POTASSIUM 25 MG TABLET ONE ×2 (10:55→11:36)
[2022-07-22] MEDS: metoPROLOL SUCCINATE 25 MG TAB.SR.24H (FP) PO SCH (10:59)
[2022-07-22] MEDS ORDERED: CEFTRIAXONE 1 GM in DEXTROSE 5%-WATER - 50 ML IVPB ONE (11:17)
[2022-07-22] MEDS ORDERED: LOSARTAN POTASSIUM 25 MG TABLET PO ONE (11:20)
[2022-07-22] MEDS: amLODIPine BESYLATE 10 MG TABLET (FP) PO SCH (11:36)
[2022-07-22] MEDS ORDERED: amLODIPine BESYLATE 10 MG TABLET (FP) ONE (11:36)
[2022-07-22] MEDS ORDERED: CEFTRIAXONE 1 GM/50 ML BAG ONE (11:37)
[2022-07-22 16:23] VITALS: BMI 33.9
[2022-07-23] MEDS: INSULIN SLIDING SCALE (NOVOLOG) 1 VIAL SQ SCH ×3 (06:14→16:29)
[2022-07-23 07:51] LABS: BASO % 0.4 % (0-2.0); EOS % 1.4 % (0-4.5); HEMATOCRIT 36.1 % (32.4-45.2); HEMOGLOBIN 12.4 GM/dL (10.7-15.3); LYMPH % 15.6 % (8-40); MCH 31.7 pg (25.7-33.7); MCHC 34.4 g/dl (32.0-36.0); MEAN CELL VOLUME 92.1 fl (80-96); MEAN PLT VOLUME 7.8 fl (7.5-11.1); NEUT % 76.6 % (42.8-82.8); PLATELET COUNT 210 10^3/uL (134-434); RBC 3.92 M/mm3 (3.60-5.2); RDW 13.5 % (11.6-15.6)
[2022-07-23 08:15] LABS: CALCIUM 8.6 mg/dL (8.5-10.1)
[2022-07-23 08:17] LABS: CREATININE 0.8 mg/dL (0.55-1.3)
[2022-07-23] MEDS: metoPROLOL SUCCINATE 25 MG TAB.SR.24H (FP) PO SCH (09:27)
[2022-07-23] MEDS: ENOXAPARIN NA (PORCINE) 40 MG/0.4 ML DISP.SYRIN SQ SCH (09:27)
[2022-07-23] MEDS: amLODIPine BESYLATE 10 MG TABLET (FP) PO SCH (09:27)
[2022-07-23] MEDS ORDERED: CEFTRIAXONE 1 GM in DEXTROSE 5%-WATER - 50 ML IVPB SCH (10:00)
[2022-07-23] MEDS ORDERED: LOSARTAN POTASSIUM 50 MG TABLET PO ONE (10:39)
[2022-07-23] MEDS: CARVEDILOL 12.5 MG TABLET (FP) PO SCH (21:11)
[2022-07-23] MEDS: LOSARTAN POTASSIUM 25 MG TABLET PO SCH (21:11)
[2022-07-24 02:53] VITALS: RESP 18
[2022-07-24 06:21] VITALS: BP 148/69; PULSE 58; TEMP 98.2
[2022-07-24] MEDS: INSULIN SLIDING SCALE (NOVOLOG) 1 VIAL SQ SCH (06:28)
[2022-07-24] MEDS: amLODIPine BESYLATE 10 MG TABLET (FP) PO SCH (09:06)
[2022-07-24] MEDS: ENOXAPARIN NA (PORCINE) 40 MG/0.4 ML DISP.SYRIN SQ SCH (09:06)
[2022-07-24] MEDS: LOSARTAN POTASSIUM 25 MG TABLET PO SCH (09:06)
[2022-07-24] MEDS: CARVEDILOL 12.5 MG TABLET (FP) PO SCH (09:06)
== END 2022-07-24 10:36 | disposition home or self-care (01) | DRG 305 ==
LOC: JER 11:19 → JERBED 14:20 → OBSVTOIN 18:21 → J4W 07-22 14:50
PROVIDERS: ADMIT Internal Medicine; ATTEND Internal Medicine
DX: I16.0 Hypertensive urgency (principal); N39.0 Urinary tract infection, site not specified; I10 Essential (primary) hypertension; J44.9 Chronic obstructive pulmonary disease, unspecified; I25.2 Old myocardial infarction; Z95.1 Presence of aortocoronary bypass graft; E78.5 Hyperlipidemia, unspecified; I25.10 Atherosclerotic heart disease of native coronary artery without angina pectoris; E11.65 Type 2 diabetes mellitus with hyperglycemia; R42 Dizziness and giddiness; I34.0 Nonrheumatic mitral (valve) insufficiency; Z79.84 Long term (current) use of oral hypoglycemic drugs
CPT/HCPCS: 0241U-QW; 36415; 70450-TC; 71045-TC-FY; 80048; 80053; 81003; 82962; 83735; 84100; 84484; 85025; 87086; 87186; 93005; 93010; 97116-GP; 97162-GP; 99285-25; G0378

== ENCOUNTER 2023-10-31 17:06 | Observation (INO) | payer OTHER ==
[2023-10-31 17:25] VITALS: BMI 34.2
[2023-10-31] MEDS: MAG HYDROX/AL HYDROX/SIMETH 30 ML UNIT-DOSE CUP PO ONE (18:24)
[2023-10-31] MEDS: ASPIRIN 81 MG CHEWABLE TABLETS PO ONE (18:24)
[2023-10-31] MEDS: FAMOTIDINE 20 MG/50 ML IVPB 20 MG/50 ML MG IVPB ONE (18:24)
[2023-10-31] MEDS ORDERED: FAMOTIDINE 10 MG/ML VIAL IVPB ONE (18:27)
[2023-10-31] MEDS ORDERED: MAG HYDROX/AL HYDROX/SIMETH 30 ML UNIT-DOSE CUP ONE (18:27)
[2023-10-31] MEDS ORDERED: ASPIRIN 81 MG CHEWABLE TABLETS ONE (18:27)
[2023-10-31 18:52] LABS: HEMATOCRIT 36.3 % (32.4-45.2); HEMOGLOBIN 12.5 GM/dL (10.7-15.3); LYMPH % 29.3 % (8-40); MCH 31.6 pg (25.7-33.7); MCHC 34.5 g/dl (32.0-36.0); MEAN CELL VOLUME 91.8 fl (80-96); MEAN PLT VOLUME 7.9 fl (7.5-11.1); MONO % 7.4 % (3.8-10.2); NEUT % 59.3 % (42.8-82.8); PLATELET COUNT 240 10^3/uL (134-434); RBC 3.95 M/mm3 (3.60-5.2); RDW 13.8 % (11.6-15.6); WHITE BLOOD COUNT 6.4 K/mm3 (4.0-10.0)
[2023-10-31 19:02] LABS: INR 1.18 (0.83-1.09); PROTHROMBIN TIME (PATIENT) 13.7 SEC (9.7-13.0)
[2023-10-31 19:04] LABS: ACTIVATED PTT 30.1 SECONDS (25.2-36.5)
[2023-10-31 19:10] LABS: POTASSIUM 3.9 mmol/L (3.5-5.1)
[2023-10-31 19:12] LABS: CALCIUM 9.1 mg/dL (8.5-10.1)
[2023-10-31 19:13] LABS: ALBUMIN 3.3 g/dl (3.4-5.0); BLOOD UREA NITROGEN 14.1 mg/dL (7-18); MAGNESIUM 1.5 mg/dL (1.8-2.4)
[2023-10-31 19:16] LABS: CREATININE 0.9 mg/dL (0.55-1.3)
[2023-10-31 19:17] LABS: BILIRUBIN,TOTAL 0.2 mg/dL (0.2-1); TOT PROT 6.6 g/dl (6.4-8.2)
[2023-10-31] MEDS ORDERED: MAGNESIUM SULFATE IN WATER 2 GM/50 ML IVPB IVPB ONE (19:49)
[2023-10-31] MEDS: MAGNESIUM SULFATE IN WATER 2 GM/50 ML IVPB IVPB ONE (20:04)
[2023-10-31] MEDS ORDERED: ACETAMINOPHEN 325 MG TABLET (FP) ONE (23:43)
[2023-10-31] MEDS ORDERED: amLODIPine BESYLATE 10 MG TABLET (FP) ONE (23:43)
[2023-10-31] MEDS: amLODIPine BESYLATE 10 MG TABLET (FP) PO SCH (23:47)
[2023-10-31] MEDS: ACETAMINOPHEN 325 MG TABLET (FP) PO ONE (23:47)
[2023-10-31] MEDS: CARVEDILOL 12.5 MG TABLET (FP) PO SCH (23:47)
[2023-11-01] MEDS ORDERED: REPAGLINIDE 1 MG TABLET PO SCH (06:00)
[2023-11-01 07:57] LABS: HEMOGLOBIN 11.6 GM/dL (10.7-15.3); MCH 31.8 pg (25.7-33.7); MCHC 35.1 g/dl (32.0-36.0); MEAN CELL VOLUME 90.8 fl (80-96); PLATELET COUNT 221 10^3/uL (134-434); RBC 3.63 M/mm3 (3.60-5.2); RDW 13.5 % (11.6-15.6); WHITE BLOOD COUNT 5.6 K/mm3 (4.0-10.0)
[2023-11-01] MEDS: INSULIN ASPART SLIDING SCALE (NOVOLOG) 1 VIAL SQ SCH (08:01)
[2023-11-01 08:30] LABS: POTASSIUM 3.6 mmol/L (3.5-5.1)
[2023-11-01 08:37] LABS: BLOOD UREA NITROGEN 14.7 mg/dL (7-18); CALCIUM 8.5 mg/dL (8.5-10.1)
[2023-11-01 08:38] LABS: ALBUMIN 3.1 g/dl (3.4-5.0); MAGNESIUM 2.1 mg/dL (1.8-2.4)
[2023-11-01 08:40] LABS: CREATININE 0.7 mg/dL (0.55-1.3); PHOSPHOROUS 3.2 mg/dL (2.5-4.9)
[2023-11-01 08:41] LABS: BILIRUBIN,TOTAL 0.3 mg/dL (0.2-1); TOT PROT 6.2 g/dl (6.4-8.2)
[2023-11-01] MEDS ORDERED: REGADENOSON 0.4 MG/5 ML PRE-FILLED SYRINGE IVPUSH ONE (09:10)
[2023-11-01] MEDS: REGADENOSON 0.4 MG/5 ML PRE-FILLED SYRINGE IVPUSH ONE (11:58)
[2023-11-01] MEDS ORDERED: amLODIPine BESYLATE 10 MG TABLET (FP) ONE (12:40)
[2023-11-01] MEDS ORDERED: CARVEDILOL 12.5 MG TABLET (FP) ONE (12:40)
[2023-11-01] MEDS ORDERED: ENOXAPARIN NA (PORCINE) 40 MG/0.4 ML DISP.SYRIN SQ ONE (12:41)
[2023-11-01] MEDS ORDERED: ASPIRIN 81 MG CHEWABLE TABLETS ONE (12:41)
[2023-11-01] MEDS: ASPIRIN COATED 81 MG TABLET.EC PO SCH (12:55)
[2023-11-01] MEDS: ENOXAPARIN NA (PORCINE) 40 MG/0.4 ML DISP.SYRIN SQ SCH (12:55)
[2023-11-01 15:27] VITALS: BP 155/72; PULSE 78; RESP 19; TEMP 97.9
[2023-11-01] MEDS ORDERED: ATORVASTATIN CA 80 MG TABLET (FP) PO SCH (22:00)
== END 2023-11-01 15:45 | disposition home or self-care (01) ==
LOC: JER 17:06 → JERBED 18:10
PROVIDERS: ADMIT Internal Medicine; ATTEND Nurse Practitioner Acute Care
PROC: 3E023GC Introduction of Other Therapeutic Substance into Muscle, Percutaneous Approach (ICD-10-PCS; principal; 2023-10-31)
PROC: 3E033GC Introduction of Other Therapeutic Substance into Peripheral Vein, Percutaneous Approach (ICD-10-PCS; 2023-10-31)
PROC: 3E013VG Introduction of Insulin into Subcutaneous Tissue, Percutaneous Approach (ICD-10-PCS; 2023-10-31)
DX: I25.10 Atherosclerotic heart disease of native coronary artery without angina pectoris (principal); I11.0 Hypertensive heart disease with heart failure; E78.5 Hyperlipidemia, unspecified; E11.9 Type 2 diabetes mellitus without complications; J44.9 Chronic obstructive pulmonary disease, unspecified; Z87.891 Personal history of nicotine dependence; Z63.8 Other specified problems related to primary support group
CPT/HCPCS: 36415; 71046-TC-FY; 78452-TC; 80053; 82550; 82962; 83036; 83735; 84100; 84484; 85025; 85027; 85610; 85730; 93005; 93010; 93017; 93306-TC; 96366; 96367; 96372; 99285-25; A9502; G0378; J2785

== ENCOUNTER 2024-01-07 16:00 | Emergency (ER) | payer OTHER ==
[2024-01-07 16:31] VITALS: TEMP 97.9
[2024-01-07 16:40] VITALS: BMI 33.0
[2024-01-07] MEDS ORDERED: ACETAMINOPHEN 500 MG TABLET (FP) ONE (17:50)
[2024-01-07] MEDS: ACETAMINOPHEN 325 MG TABLET (FP) PO ONE (17:53)
[2024-01-07 19:42] VITALS: BP 170/53; PULSE 68; RESP 18
== END 2024-01-07 20:05 | disposition home or self-care (01) ==
LOC: JER 16:00
DX: M25.552 Pain in left hip (principal); M25.512 Pain in left shoulder; W19.XXXA Unspecified fall, initial encounter
CPT/HCPCS: 70450-TC; 72125-TC; 72170-TC-FY; 73502-TC-LT-FY; 73562-TC-LT-FY; 73610-TC-LT-FY; 73630-TC-LT; 99284-25

== ENCOUNTER 2024-01-18 18:48 | Inpatient (IN) | payer OTHER ==
[2024-01-18] MEDS ORDERED: ASPIRIN 81 MG CHEWABLE TABLETS ONE (19:55)
[2024-01-18] MEDS: ASPIRIN 81 MG CHEWABLE TABLETS PO ONE (20:06)
[2024-01-18 20:13] LABS: BASO % 1.3 % (0-2.0); EOS % 2.9 % (0-4.5); HEMOGLOBIN 12.3 GM/dL (10.7-15.3); LYMPH % 28.8 % (8-40); MCH 30.8 pg (25.7-33.7); MCHC 33.3 g/dl (32.0-36.0); MEAN CELL VOLUME 92.6 fl (80-96); MEAN PLT VOLUME 7.8 fl (7.5-11.1); MONO % 6.8 % (3.8-10.2); NEUT % 60.2 % (42.8-82.8); PLATELET COUNT 257 10^3/uL (134-434); RDW 13.8 % (11.6-15.6); WHITE BLOOD COUNT 5.6 K/mm3 (4.0-10.0)
[2024-01-18 20:17] LABS: INR 1.12 (0.83-1.09); PROTHROMBIN TIME (PATIENT) 12.6 SEC (9.7-13.0)
[2024-01-18 20:20] LABS: ACTIVATED PTT 33.7 SECONDS (25.2-36.5)
[2024-01-18 20:31] LABS: CHLORIDE 104 mmol/L (98-107); POTASSIUM 3.6 mmol/L (3.5-5.1); SODIUM 136 mmol/L (136-145)
[2024-01-18 20:33] LABS: CALCIUM 9.2 mg/dL (8.5-10.1)
[2024-01-18 20:34] LABS: ALBUMIN 3.4 g/dl (3.4-5.0); ANION GAP 3 mmol/L (4-13); BLOOD UREA NITROGEN 14.5 mg/dL (7-18); CO2 30 mmol/L (21-32); GLUCOSE,RANDOM 320 mg/dL (74-106); MAGNESIUM 1.8 mg/dL (1.8-2.4)
[2024-01-18 20:37] LABS: CREATININE 0.8 mg/dL (0.55-1.3); SGOT/AST 13 U/L (15-37); SGPT/ALT 16 U/L (13-61)
[2024-01-18 20:39] LABS: BILIRUBIN,TOTAL 0.2 mg/dL (0.2-1); TOT PROT 6.9 g/dl (6.4-8.2)
[2024-01-18 20:40] LABS: ALK PHOS 90 U/L (45-117)
[2024-01-18] MEDS: FAMOTIDINE 20 MG/50 ML IVPB 20 MG/50 ML MG IVPB ONE (20:47)
[2024-01-18] MEDS: MAG HYDROX/AL HYDROX/SIMETH 30 ML UNIT-DOSE CUP PO ONE (20:47)
[2024-01-18] MEDS ORDERED: LIDOCAINE 4% PATCH TP ONE (20:55)
[2024-01-18] MEDS ORDERED: ACETAMINOPHEN INJECTION 100 ML IVPB ONE (20:55)
[2024-01-18] MEDS ORDERED: ENOXAPARIN NA (PORCINE) 80 MG/0.8 ML DISP.SYRIN SQ ONE (21:02)
[2024-01-18] MEDS: LIDOCAINE 4% PATCH TP ONE (21:14)
[2024-01-18] MEDS: ACETAMINOPHEN 1000 MG/100 ML BAG IVPB ONE (21:14)
[2024-01-18] MEDS ORDERED: ENOXAPARIN NA (PORCINE) 100 MG/1 ML DISP.SYRIN SQ ONE (21:52)
[2024-01-18] MEDS: ENOXAPARIN NA (PORCINE) 100 MG/1 ML DISP.SYRIN SQ ONE (21:59)
[2024-01-18] MEDS: INSULIN ASPART SLIDING SCALE (NOVOLOG) 1 VIAL SQ SCH (23:12)
[2024-01-19] MEDS: INSULIN (LEVEMIR) 100 UNITS/ML UNITS SQ SCH (00:05)
[2024-01-19] MEDS: CARVEDILOL 12.5 MG TABLET (FP) PO SCH (00:44)
[2024-01-19] MEDS ORDERED: CARVEDILOL 25 MG TABLET (FP) ONE (00:44)
[2024-01-19 05:04] VITALS: BMI 33.0
[2024-01-19] MEDS ORDERED: ENOXAPARIN NA (PORCINE) 60 MG/0.6 ML DISP.SYRIN SQ SCH (06:00)
[2024-01-19 08:17] LABS: HEMATOCRIT 31.4 % (32.4-45.2); HEMOGLOBIN 10.9 GM/dL (10.7-15.3); MCH 31.7 pg (25.7-33.7); MCHC 34.6 g/dl (32.0-36.0); MEAN CELL VOLUME 91.6 fl (80-96); MEAN PLT VOLUME 8.3 fl (7.5-11.1); PLATELET COUNT 213 10^3/uL (134-434); RBC 3.43 M/mm3 (3.60-5.2); RDW 13.6 % (11.6-15.6); WHITE BLOOD COUNT 4.4 K/mm3 (4.0-10.0)
[2024-01-19 08:38] LABS: POTASSIUM 3.3 mmol/L (3.5-5.1)
[2024-01-19 08:49] LABS: BLOOD UREA NITROGEN 9.8 mg/dL (7-18)
[2024-01-19 08:50] LABS: ALBUMIN 2.8 g/dl (3.4-5.0); CALCIUM 8.4 mg/dL (8.5-10.1); MAGNESIUM 1.9 mg/dL (1.8-2.4)
[2024-01-19 08:52] LABS: CREATININE 0.6 mg/dL (0.55-1.3); PHOSPHOROUS 3.5 mg/dL (2.5-4.9)
[2024-01-19 08:53] LABS: BILIRUBIN,TOTAL 0.3 mg/dL (0.2-1)
[2024-01-19 08:54] LABS: TOT PROT 5.9 g/dl (6.4-8.2)
[2024-01-19] MEDS: ASPIRIN COATED 81 MG TABLET.EC PO SCH (09:08)
[2024-01-19] MEDS: amLODIPine BESYLATE 10 MG TABLET (FP) PO SCH (09:08)
[2024-01-19] MEDS: LOSARTAN POTASSIUM 50 MG TABLET PO SCH (09:08)
[2024-01-19] MEDS: ENOXAPARIN NA (PORCINE) 100 MG/1 ML DISP.SYRIN SQ SCH (10:22)
[2024-01-19] MEDS: LIDOCAINE PATCH REMOVAL MC ONE (11:47)
[2024-01-19] MEDS: CLOPIDOGREL BISULFATE 300 MG TABLET PO ONE (12:19)
[2024-01-19 14:10] VITALS: BP 131/58; PULSE 63; RESP 18; TEMP 99.1
[2024-01-19] MEDS ORDERED: ATORVASTATIN CA 80 MG TABLET (FP) PO SCH (22:00)
[2024-01-20] MEDS ORDERED: CLOPIDOGREL BISULFATE 75 MG TABLET (FP) PO SCH (10:00)
== END 2024-01-19 16:25 | disposition short-term general hospital (02) | DRG 282 ==
LOC: JER 18:48 → JERBED 21:03 → J4W 01-19 04:27
PROVIDERS: ADMIT Internal Medicine; ATTEND Internal Medicine
DX: I21.4 Non-ST elevation (NSTEMI) myocardial infarction (principal); I25.110 Atherosclerotic heart disease of native coronary artery with unstable angina pectoris; I10 Essential (primary) hypertension; J44.9 Chronic obstructive pulmonary disease, unspecified; E78.5 Hyperlipidemia, unspecified; E87.6 Hypokalemia; Z95.1 Presence of aortocoronary bypass graft; E11.65 Type 2 diabetes mellitus with hyperglycemia
CPT/HCPCS: 36415; 71046-TC-FY; 80053; 82550; 82962; 83735; 84100; 84484; 85025; 85027; 85610; 85730; 93005; 93010; 99285-25